=== PATIENT | male | born 1975 | race Caucasian/White ===

== ENCOUNTER 2019-01-03 01:02 | Emergency (ER) | payer OTHER ==
[~2019-01-03] VITALS: Ht 175.3 cm; Wt 83.9 kg
[2019-01-03] MEDS ORDERED: Veetids 500500 MG PO (04:08)
== END 2019-01-03 04:20 | disposition home or self-care (01) ==
LOC: ER 01:02
DX: K04.7 Periapical abscess without sinus (principal); F17.210 Nicotine dependence, cigarettes, uncomplicated
CPT/HCPCS: 96372; 99283-25; J1885